=== PATIENT | male | born 1940 | race Caucasian/White ===

== ENCOUNTER 2018-10-10 09:24 | Emergency (ER) | payer MEDICARE, OTHER ==
[2018-10-10] MEDS ORDERED: 0.9% SODIUM CHLORIDE 250ML BAG IV ONE (09:46)
[2018-10-10] MEDS ORDERED: PIPERACILLIN SODIUM/TAZOBACTAM 3.375 GM in 0.9 % SODIUM CHLORIDE 100ML 100 ML IVPB ONE (10:04)
[2018-10-10] MEDS ORDERED: VANCOMYCIN HCL 1,000 MG in 0.9 % SODIUM CHLORIDE 250ML 250 ML IVPB ONE (10:05)
[2018-10-10 10:07] LABS: HEMATOCRIT 38.2 % (42.0-52.0); HEMOGLOBIN 13.6 gm/dl (14.0-18.0); MEAN CELL VOLUME 85.1 fl (81-97); MEAN CORPUSCULAR HGB CONC 35.6 g/dl (32-36); MEAN PLATELET VOLUME 9.8 fl (7.4-10.4); PLATELET COUNT 331 K/uL (130-400); RED BLOOD COUNT 4.49 M/uL (4.40-5.70); RED CELL DISTRIBUTION WIDTH 12.7 % (11.5-14.5)
[2018-10-10] MEDS ORDERED: HYDROMORPHONE HCL 2 MG/ML VIAL IVP ONE ×2 (10:17→12:04)
[2018-10-10 10:19] LABS: MEAN CORPUSCULAR HEMOGLOBIN 30.2 pg (27-33); WHITE BLOOD COUNT W/O DIFF 30.5 K/uL (4.2-12.2)
[2018-10-10 10:21] LABS: CREATININE 1.3 mg/dL (0.7-1.2)
[2018-10-10 10:28] LABS: TOXIC GRANULATION 1+
[2018-10-10 10:31] LABS: INR 1.1; PARTIAL THROMBOPLASTIN TIME 34.3 SECONDS (24.5-39.1); PROTHROMBIN TIME (PATIENT) 11.4 SECONDS (9.5-12.1)
--- NOTE | 2018-10-10 10:45 | Emergency Department Record ---
History of Present Illness - General Chief complaint: Male Urogenital Problem Stated complaint: SCROTUM SWOLLEN Time Seen by Provider: 10/10/18 09:41 Source: Patient, Family () Mode of Arrival: Ambulatory - History of Present Illness Initial comments: Pt with with 7 days of swelling and pain to right buttock cheek now spread to the scrotum. Pt without fever. Hx DM with recent increase in sugars at home per who checks. Only on Metformin. Pt denies fever. concerned about the swelling. Onset/Timin -: Week(s) Severity: Severe Severity scale (1-10): 10 Quality: Aching Consistency: Constant Improves with: None Worsens with: None Reports: Denies other symptoms - Related Data Home Medications Medication Instructions Recorded Confirmed Last Taken Aspirin [Adult Aspirin] 81 mg PO DAILY 10/10/18 10/10/18 Unknown Donepezil HCl 5 mg PO BID 10/10/18 10/10/18 Unknown Lisinopril 40 mg PO DAILY 10/10/18 10/10/18 Unknown Memantine HCl 5 mg PO QAM 10/10/18 10/10/18 Unknown Metformin HCl 1,000 mg PO BID 10/10/18 10/10/18 Unknown Leighton-3S/Dha/Epa/Fish Oil [Fish 1 each PO TID 10/10/18 10/10/18 Unknown Oil Leighton-3 Softgel] Pantoprazole Sodium 40 mg PO BID 10/10/18 10/10/18 10/10/18 Tamsulosin HCl [Flomax] 0.4 mg PO DAILY 10/10/18 10/10/18 Unknown Allergies Allergy/AdvReac Type Severity Reaction Status Date / Time No Known Drug Allergies Allergy Verified 10/10/18 09:46 Travel Screening - Travel/Exposure Within Last 30 Days Have you traveled within the last 30 days?: No Review of Systems Constitutional: Denies: Chills, Fever, Weakness Eyes: Denies: Eye discharge, Photophobia ENT: Denies: Congestion Respiratory: Denies: Cough Cardiovascular: Denies: Arrhythmia, Chest pain Endocrine: Reports: Polyuria. Denies: Fatigue, Polydipsia Gastrointestinal: Reports: As per HPI Genitourinary: Reports: As per HPI Musculoskeletal: Denies: Arthralgia Skin: Reports: Bruising Neurological: Denies: Abnormal gait, Seizure, Tingling Psychiatric: Denies: Anxiety Hematological/Lymphatic: Denies: Anemia Past Medical History - SOCIAL HISTORY Smoking Status: Never smoker Alcohol Use: None Drug Use: None - RESPIRATORY Hx Respiratory Disorders: No - CARDIOVASCULAR Hx Cardio Disorders: Yes Hx Hypertension: Yes - NEURO Hx Neuro Disorders: Yes Comment:: alzheimers - GI Hx GI Disorders: Yes Hx Reflux: Yes - Hx Genitourinary Disorders: Yes Hx Prostate Problems: Yes - ENDOCRINE Hx Endocrine Disorders: Yes Hx Diabetes: Yes (type 2) - MUSCULOSKELETAL Hx Musculoskeletal Disorders: No - PSYCH Hx Psych Problems: No - HEMATOLOGY/ONCOLOGY Hx Hematology/Oncology Disorders: No Family Medical History Any Significant Family History?: No Physical Exam - General General Appearance: Alert, Oriented x3, Cooperative, Moderate distress Limitations: No limitations - Head Head exam: Atraumatic - Eye Eye exam: Normal appearance, PERRL - ENT ENT exam: Normal exam, Mucous membranes moist, Normal external ear exam, Normal orophraynx, TM's normal bilaterally - Neck Neck exam: Normal inspection, Full ROM. negative: Tenderness - Respiratory Respiratory exam: Normal lung sounds bilaterally. negative: Respiratory distress - Cardiovascular Cardiovascular Exam: Regular rate, Normal rhythm, Normal heart sounds - GI/Abdominal GI/Abdominal exam: Soft, Normal bowel sounds. negative: Guarding, Tenderness - Rectal Rectal exam: Heme (-) stool, Mass, Tenderness (large right buttock fullness with pain and erythema. Extends to scrotum ) - exam: Scrotal swelling, Testicular tenderness (Large tender ecchymotis scrotum) - Extremities Extremities exam: Normal inspection - Back Back exam: Reports: Normal inspection - Neurological Neurological exam: Alert, Oriented X3 - Psychiatric Psychiatric exam: Normal affect, Normal mood (scrotum as noted. ) Course Vital Signs 10/10/18 09:41 Temperature 97.8 F Pulse Rate 83 Respiratory 20 Rate Blood Pressure 139/77 Pulse Ox 95 - Reevaluation(s) Reevaluation #1: 10/10/18 11:42 Seen IV fluids and AB as noted. Labs and CT reviewerd. Discussed with pt and . URGENT transfer to [facility] ED as Per [facility] Call with Dr. Caraballo and Dr. Moore in ED. Pt to ED to see Dr Caraballo from Urology for gangrenous scrotum and rectal abscess. Procedures - EKG Initial Date: 10/10/18 Time: 10:01 EKG: Normal EKG Medical Decision Making - Lab Data Result diagrams: 10/10/18 10:00 10/10/18 10:00 Lab Results 10/10/18 10/10/18 10/10/18 Range/Units 10:00 10:00 10:00 WBC 30.5 H* (4.2-12.2) K/uL RBC 4.49 (4.40-5.70) M/uL Hgb 13.6 L (14.0-18.0) gm/dl Hct 38.2 L (42.0-52.0) % MCV 85.1 (81-97) fl MCH 30.2 (27-33) pg MCHC 35.6 (32-36) g/dl RDW 12.7 (11.5-14.5) % Plt Count 331 (130-400) K/uL MPV 9.8 (7.4-10.4) fl Neutrophils % 90.0 H (47-80) % Band Neutrophils % 1.0 (0-5) % Lymphocytes % [employer] Monocytes % [employer] Eosinophils % [employer] Basophils % [employer] Lymphocytes 2.0 L (16-45) % Monocytes 6.0 (0-9) % Metamyelocytes 1.0 % Toxic Granulation 1+ PT 11.4 (9.5-12.1) SECONDS INR 1.1 APTT 34.3 (24.5-39.1) SECONDS Sodium 123 L (136-145) mmol/L Potassium 4.0 (3.4-4.5) mmol/L Chloride 83 L (98-107) mmol/L Carbon Dioxide 21.0 L (22-29) mmol/L Anion Gap 19.0 H (7-16) BUN 25 H (8-23) mg/dL Creatinine 1.3 H (0.7-1.2) mg/dL Estimated GFR 57 mL/min Random Glucose 309 H (74-109) mg/dL Calcium 8.9 (8.8-10.2) mg/dL Critical Care Time Critical Care Time: Yes (critical pt with multiple interventions. ) Total Critical Care Time: 40 Disposition Disposition: Transfer Clinical Impression: Quyen's gangrene of scrotum, Perirectal abscess, Leukocytosis, Hyperglycemia Disposition: Acute Care Hospital Transfer Transfer To: [facility] ED Reason For Transfer: Urology surgical care Accepting Physician: Oscar Caraballo Time Discussed w/Accepting Physician: 11:43 Condition: (3) Guarded Forms: Patient Portal Access Time of Disposition: 11:44 Quality - Quality Measures Quality Measures: N/A - Blood Pressure Screening Does Patient Have Any of the Following: No Blood Pressure Classification: Pre-Hypertensive BP Reading Systolic Measurement: 139 Diastolic Measurement: 77 Screening for High Blood Pressure: < Pre-Hypertensive BP, F/U Documented > [ [id number]] Pre-Hypertensive Follow-up Interventions: Follow-up with rescreen every year.
[2018-10-10 10:47] LABS: URINE APPEARANCE CLEAR; URINE BILIRUBIN NEGATIVE (NEGATIVE); URINE BLOOD NEGATIVE (NEGATIVE); URINE COLOR YELLOW; URINE KETONE 15 mg/dL (NEGATIVE); URINE LEUKOCYTE ESTERASE NEGATIVE (NEGATIVE); URINE NITRITE NEGATIVE (NEGATIVE); URINE PROTEIN NEGATIVE (NEGATIVE); URINE UROBILINOGEN 0.2 E.U./dL (0.20 - 1.00)
[2018-10-10] MEDS ORDERED: 0.9 % SODIUM CHLORIDE 1000ML 1,000 ML IV ONE (10:56)
[2018-10-10] MEDS ORDERED: HUMULIN R 100 UNIT/ML VIAL IV ONE (11:11)
[2018-10-10] MEDS ORDERED: HUMULIN R 100 UNIT/ML VIAL SC ONE (11:13)
[2018-10-10 11:32] LABS: FIBRINOGEN 717.3 mg/dL (157-408)
[2018-10-10] MEDS ORDERED: LIDOCAINE UROJECT 10 ML APPL MM ONE (11:36)
[2018-10-10 11:47] LABS: BILIRUBIN,TOTAL 0.8 mg/dL (0.2-1.0)
[2018-10-10 11:52] LABS: BILIRUBIN,DIRECT 0.3 mg/dL (0-0.3)
[2018-10-10 11:53] LABS: ALBUMIN 3.4 g/dL (4.0-5.0)
--- NOTE | 2018-10-12 07:12 | CT SCAN REPORT ---
EXAM: POST CONTRAST CT OF THE ABDOMEN AND PELVIS HISTORY: PERIRECTAL INFLAMMATION, RIGHT BUTTOCK PAIN, ELEVATED WHITE COUNT. TECHNIQUE: Post contrast CT of the abdomen and pelvis was obtained. 100 ml of Omnipaque 300 intravenous contrast was administered. Comparison: None. FINDINGS: Partially visualized intrathoracic stomach compatible with provided surgical history of prior gastric pull through procedure. Scattered calcified pleural plaques are noted at the lung bases bilaterally. The gallbladder appears diffusely thickened with surrounding inflammatory fat stranding. Unremarkable appearance of the liver. Left upper abdominal quadrant surgical clips. Unremarkable appearance of the spleen and adrenal glands. Unremarkable appearance of the pancreas. Bilateral renal cortical and intrapelvic cysts. Cluster of small calculi of the left lower renal pole. No hydronephrosis. Symmetric renal perfusion. Atherosclerotic plaques of the aortoiliac arterial access without evidence of aneurysm or dissection. Prominent distention of the urinary bladder, bladder dome slightly above the level of the umbilicus. Scattered colonic diverticulosis without evidence of acute diverticulitis. No focal colonic thickening or inflammatory changes although some portions of the colon are underdistended. Evidence of prior ventral abdominal wall hernia repair with diastasis of the rectus abdominis musculature. Noninflamed appendix. No intraperitoneal free air or free fluid. Both inguinal canals are patulous and fat containing. Extensive soft tissue emphysema within the medial right gluteal subcutaneous fat , extending into the perineum and left hemiscrotum. Large peripherally enhancing fluid collection arising distally in the right gluteal soft tissues and extending more proximally into the ischiorectal fossa; collection measures approximately 6.6 x 3.0 x 7.8 cm. Proximal extent of ischiorectal collection abuts the levator ani muscle without definite intrapelvic extension. No definite acute osseous abnormalities. IMPRESSION: 1. EXTENSIVE SOFT TISSUE GAS INVOLVING THE RIGHT GLUTEAL FAT, PERINEUM, AND LEFT HEMISCROTUM, SUGGESTIVE OF MELONIE'S GANGRENE. 2. LARGE SOFT TISSUE ABSCESS EXTENDING FROM THE RIGHT GLUTEAL SOFT TISSUES INTO THE RIGHT ISCHIORECTAL FOSSA COLLECTION MEASURES UP TO 7.8 CM. 3. DIFFUSELY THICKENED APPEARANCE OF THE GALLBLADDER WITH SURROUNDING INFLAMMATORY CHANGES, SUSPICIOUS FOR ACUTE CHOLECYSTITIS. 4. MULTIPLE ADDITIONAL INCIDENTAL AND CHRONIC FINDINGS, DISCUSSED IN THE BODY OF THE REPORT. 5. THERE IS PROMINENT DISTENTION OF THE URINARY BLADDER WITH THE BLADDER DOME NEAR THE LEVEL OF THE UMBILICUS. 6. ACUTE FINDINGS WERE DISCUSSED WITH THE ORDERING PROVIDER AT TIME OF INTERPRETATION. JOB NUMBER: [id number] MTDD
== END 2018-10-10 12:15 | disposition short-term general hospital (02) ==
LOC: ER 09:24
DX: N49.3 Fournier gangrene (principal); K61.1 Rectal abscess; D72.829 Elevated white blood cell count, unspecified; I10 Essential (primary) hypertension; E11.65 Type 2 diabetes mellitus with hyperglycemia; G30.9 Alzheimer's disease, unspecified; F02.80 Dementia in other diseases classified elsewhere, unspecified severity, without behavioral disturbance, psychotic disturbance, mood disturbance, and anxiety; Z79.84 Long term (current) use of oral hypoglycemic drugs
CPT/HCPCS: 51702; 99291 ×2; 96365; 96375; 84075; 84450; 84460; 82247; 82248; 82040; 82800; 85384; 85730; 85610; 80048; 81003; 85379; 85027; 74177; 93005; 93010; Q9967; J3370; J1815; J1170; J2543; J7030; J7050